=== PATIENT | male | born 1980 | race Caucasian/White ===

== ENCOUNTER 2020-12-13 11:27 | Emergency (ER) | payer MEDICAID, OTHER ==
[~2020-12-13] VITALS: Ht 167.6 cm; Wt 82.0 kg
[2020-12-13] MEDS ORDERED: IBUP-2029 MT (14:35)
[2020-12-13] MEDS ORDERED: IBUPROFEN 600MG TABLET PO ONE (14:45)
[2020-12-13 14:52] VITALS: BP 162/109
== END 2020-12-13 15:00 | disposition home or self-care (01) ==
LOC: ER 11:27
DX: M25.512 Pain in left shoulder (principal)
CPT/HCPCS: 99282